=== PATIENT | female | born 1990 | race Caucasian/White ===

== ENCOUNTER 2025-02-11 21:09 | Emergency (ER) | payer MEDICAID ==
[~2025-02-11] VITALS: Ht 157.5 cm; Wt 86.0 kg
[2025-02-11 21:29] VITALS: O2SAT 99
[2025-02-11 23:05] LABS: BASOPHILS % 0.3 % (0.0-2.0); HEMOGLOBIN. 13.2 g/dL (12.0-16.0); LYMPHOCYTES % 22.8 % (20.0-50.0); MEAN CORPUSCULAR HEMOGLOBIN 28.9 pg (28.0-32.0); MEAN CORPUSCULAR HGB CONC 32.8 g/dL (31.0-37.0); MEAN CORPUSCULAR VOLUME 88.1 fL (81.0-99.0); MEAN PLATELET VOLUME 10.2 fl (7.4-10.4); MONOCYTES % 6.8 % (2.0-8.0); NEUTROPHILS % 69.1 % (40.0-76.0); PLATELET 188 x1000/uL (130-400); RED BLOOD CELL COUNT 4.55 mill/uL (4.2-5.4); RED CELL DISTRIBUTION WIDTH 13.5 % (11.6-14.6); WHITE BLOOD COUNT 11.3 x1000/uL (4.5-11.0)
[2025-02-11 23:18] LABS: CHLORIDE 105 mEq/L (98-107); POTASSIUM 3.6 mEq/L (3.5-5.1); SODIUM 141 mEq/L (136-145)
[2025-02-11 23:19] LABS: CALCIUM 9.9 mg/dL (8.7-10.4); CARBON DIOXIDE 30 mEq/L (21-32)
[2025-02-11 23:24] LABS: CREATININE 0.7 mg/dL (0.6-1.0); GLUCOSE 110 mg/dL (70-105); UREA NITROGEN BLOOD 11 mg/dL (9-23)
[2025-02-11 23:25] LABS: B-HCG QUANTITATIVE 417 mIU/mL (<6)
[2025-02-12 00:56] VITALS: BP 143/86; PULSE 80; RESP 18; TEMP 36.9; O2SAT 99
== END 2025-02-12 00:58 | disposition home or self-care (01) ==
LOC: ER 21:09
DX: O09.521 Supervision of elderly multigravida, first trimester (principal); D25.9 Leiomyoma of uterus, unspecified; Z3A.01 Less than 8 weeks gestation of pregnancy
CPT/HCPCS: 36415; 76801; 80048; 84702; 85025; 86850; 86900; 99284

== ENCOUNTER 2025-02-13 00:54 | Emergency (ER) | payer MEDICAID ==
[~2025-02-13] VITALS: Ht 154.9 cm; Wt 84.0 kg
[2025-02-13 00:58] VITALS: BP 130/66; TEMP 36.8; O2SAT 99
[2025-02-13 00:59] VITALS: PULSE 88; RESP 14; O2SAT 98
[2025-02-13 01:19] LABS: BASOPHILS % 0.5 % (0.0-2.0); EOSINOPHILS % 0.9 % (0.0-5.0); HEMATOCRIT. 39.5 % (36.0-48.0); HEMOGLOBIN. 13.2 g/dL (12.0-16.0); LYMPHOCYTES % 25.2 % (20.0-50.0); MEAN CORPUSCULAR HEMOGLOBIN 29.3 pg (28.0-32.0); MEAN CORPUSCULAR HGB CONC 33.4 g/dL (31.0-37.0); MEAN CORPUSCULAR VOLUME 87.9 fL (81.0-99.0); MEAN PLATELET VOLUME 10.1 fl (7.4-10.4); MONOCYTES % 5.5 % (2.0-8.0); NEUTROPHILS % 67.9 % (40.0-76.0); PLATELET 205 x1000/uL (130-400); RED BLOOD CELL COUNT 4.49 mill/uL (4.2-5.4); RED CELL DISTRIBUTION WIDTH 13.1 % (11.6-14.6); WHITE BLOOD COUNT 11.5 x1000/uL (4.5-11.0)
[2025-02-13 01:28] LABS: CHLORIDE 106 mEq/L (98-107); POTASSIUM 3.5 mEq/L (3.5-5.1); SODIUM 138 mEq/L (136-145)
[2025-02-13 01:29] LABS: CARBON DIOXIDE 26 mEq/L (21-32)
[2025-02-13 01:30] LABS: CALCIUM 9.7 mg/dL (8.7-10.4)
[2025-02-13 01:34] LABS: CREATININE 0.8 mg/dL (0.6-1.0); GLUCOSE 93 mg/dL (70-105); UREA NITROGEN BLOOD 12 mg/dL (9-23)
[2025-02-13 01:35] LABS: B-HCG QUANTITATIVE 216 mIU/mL (<6)
== END 2025-02-13 07:55 | disposition home or self-care (01) ==
LOC: ER 00:54
DX: O03.9 Complete or unspecified spontaneous abortion without complication (principal); Z3A.01 Less than 8 weeks gestation of pregnancy; O26.891 Other specified pregnancy related conditions, first trimester; D25.9 Leiomyoma of uterus, unspecified
CPT/HCPCS: 36415; 76801; 80048; 84702; 85025; 86850; 86900; 99284